=== PATIENT | male | born 1970 | race Asian ===

== ENCOUNTER 2020-08-13 13:51 | Emergency (ER) | payer MEDICAID ==
[~2020-08-13] VITALS: Ht 170.2 cm; Wt 90.7 kg
[2020-08-13 13:56] VITALS: BP_SYST 144
--- NOTE | 2020-08-13 14:00 | NUR ---
Pt brought by self, A&Ox4, pt presents to ER with dogbite on R arm and R flank area, bleeding controlled, skin pink and warm, cap refill <3.
--- NOTE | 2020-08-13 16:13 | NUR ---
Dr Barrera evaluating patient in the triage room
[2020-08-13] MEDS ORDERED: LIDOCAINE 1%, 20 ML MDV 20 ML ONE (16:19)
[2020-08-13] MEDS ORDERED: BACITRACIN 1 GM OINT TP ONE (16:29)
[2020-08-13] MEDS ORDERED: DIPH-TET-PERTUS Vaccine 0.5 ML VIAL (ADACEL) I.M. ONE (16:30)
[2020-08-13] MEDS ORDERED: AMOXICILLIN/CLAVULANATE POTASSIUM 500 MG TABLET PO ONE (16:30)
[2020-08-13 17:05] VITALS: BP_SYST 144
--- NOTE | 2020-08-13 17:06 | NUR ---
Patient given written and verbal discharge instructions and verbalizes understanding. ER MD discussed with patient the results and treatment provided. Patient in stable condition. ID arm band removed. Rx of Augmentin and Motrin given. Patient educated on pain management and to follow up with PMD. Pain Scale 3/10 tolerable for pt . Opportunity for questions provided and answered. Medication side effect fact sheet provided.
== END 2020-08-13 17:06 | disposition home or self-care (01) ==
LOC: SED 13:51
DX: S51.011A Laceration without foreign body of right elbow, initial encounter (principal); W54.0XXA Bitten by dog, initial encounter; Y93.89 Activity, other specified; Y92.89 Other specified places as the place of occurrence of the external cause; Y99.8 Other external cause status
CPT/HCPCS: 12002; 90471; 90715; 99283; J2001

== ENCOUNTER 2020-08-28 07:06 | Emergency (ER) | payer MEDICAID ==
[~2020-08-28] VITALS: Ht 170.2 cm; Wt 83.9 kg
[2020-08-28 09:08] VITALS: BP_SYST 120
[2020-08-28] MEDS: BACITRACIN 1 GM OINT TP ONE (09:20)
== END 2020-08-28 09:08 | disposition home or self-care (01) ==
LOC: SED 07:06
DX: S41.111D Laceration without foreign body of right upper arm, subsequent encounter (principal); W54.0XXD Bitten by dog, subsequent encounter
CPT/HCPCS: 99282